=== PATIENT | female | born 1985 ===

== ENCOUNTER 2016-09-22 06:14 | Inpatient (IN) | payer BC ==
[2016-09-22] MEDS ORDERED: Sodium Citrate/Citric Acid* 15 ML UDC ONE (07:37)
[2016-09-22] MEDS ORDERED: Morphine PF AMP (0.5MG/ML)* 5 MG/10 ML AMP ONE (07:41)
[2016-09-22] MEDS ORDERED: ceFOXitin 2 GM IVPREMIX* 2 GM/50 ML BAG IVPB ONE (08:00)
[2016-09-22] MEDS ORDERED: Phenylephrine IV* 40 MCG/ML 10 ML SYRINGE ONE (08:03)
[2016-09-22] MEDS ORDERED: fentaNYL* 50 MCG/ML 2 ML VIAL (100 MCG VIAL) ONE (08:27)
[2016-09-22] MEDS ORDERED: fentaNYL* 50 MCG/ML 2 ML VIAL (100 MCG VIAL) IV PRN (08:33)
[2016-09-22] MEDS ORDERED: DiMENhydriNATE IV* 50 MG/ML VIAL IV PUSH PRN (08:33)
[2016-09-22] MEDS ORDERED: Nalbuphine* 20 MG/ML 1 ML VIAL IV PRN (08:35)
[2016-09-22] MEDS ORDERED: diPHENhydraMINE IV* 50 MG/ML 1 ml VIAL (BENADRYL) IV PRN (08:35)
[2016-09-22] MEDS ORDERED: oxyCODONE/Acetamin 5/325 MG* TAB PO PRN ×3 (08:35→23:58)
[2016-09-22] MEDS ORDERED: Ondansetron INJ* 2 MG/ML VIAL IV PRN (08:35)
[2016-09-22] MEDS ORDERED: Naloxone* 2 MG in NS 0.9% 250 ML* 250 ML IV PRN (08:35)
[2016-09-22] MEDS ORDERED: Naloxone* 0.4 MG/ML 1 ML VIAL IV PRN (08:35)
[2016-09-22] MEDS ORDERED: OXYTOCIN* 10 UNITS/ML 1 ML VIAL ONE (08:41)
[2016-09-22] MEDS ORDERED: Ketorolac INJ* 30 MG/ML 1 ML VIAL ONE (08:41)
[2016-09-22] MEDS ORDERED: Ondansetron INJ* 2 MG/ML VIAL ONE (08:41)
[2016-09-22] MEDS ORDERED: Dibucaine 1% 28.35 GM TUBE PR PRN (09:01)
[2016-09-22] MEDS ORDERED: Acetaminophen TAB* 325 MG PO PRN (09:01)
[2016-09-22] MEDS ORDERED: Glycerin ADULT SUPP PR PRN (09:01)
[2016-09-22] MEDS ORDERED: Witch Hazel PAD* JAR TOPICAL PRN (09:01)
[2016-09-22] MEDS ORDERED: Oxytocin in LR* 20 UNITS/1,000 ML BAG IVPB SCH (10:00)
[2016-09-22] MEDS: Ketorolac INJ* 30 MG/ML 1 ML VIAL IV PRN ×2 (14:33→22:08)
[2016-09-22] MEDS: Docusate CAP* 100 MG PO SCH ×2 (14:36→22:08)
[2016-09-22] MEDS: Simethicone CHEW TAB* 80 MG PO SCH ×2 (14:37→22:08)
--- NOTE | 2016-09-23 04:35 | OP ---
CC: Olaf Shah MD * DATE OF OPERATION: 09/22/16 - ROOM #[id number]-113 DATE OF : 81 SURGEON: Emilia Mi MD. PRINTING GRAY CLOTH TENDER: Olaf Shah MD ANESTHESIOLOGIST: Dr. Ray. ANESTHESIA: Spinal. PRE-OP DIAGNOSES: 1. Desires repeat section, intrauterine at 39-0/7th weeks. 2. Diabetes mellitus. POST-OP DIAGNOSES: 1. Desires repeat section, intrauterine at 39-0/7th weeks, delivered. 2. Diabetes mellitus. OPERATIVE PROCEDURE: Repeat low transverse section and lysis of adhesions. FINDINGS: Revealed a vertex female with Apgars 9 at 1 minute, 9 at 5 minutes, weight 7 pounds 11 ounces. No nuchal cord. No meconium. Uterus with thin lower uterine segment; however, with no window. Normally palpated tubes and ovaries. She had an omental adhesion and an abdominal wall adhesion of the uterus to the abdominal wall on the left upper portion of the uterus. Normally palpated tubes and ovaries. Normal appearing placenta, 3-vessel cord manually extracted intact. COMPLICATIONS: None apparent. DISPOSITION: Stable to recovery room. DESCRIPTION OF PROCEDURE: The patient was placed in dorsal lithotomy position. The abdomen was prepped and draped in a sterile standard fashion. After testing to appropriate level of anesthesia and completing universal protocol, an incision was made two fingerbreadths above the pubic symphysis through prior incision. This was used with the scalpel and this was carried down through to the fascia. The fascia was scored in the midline and extended laterally and superiorly using Merchant scissors. The peritoneum was then entered bluntly. The bladder blade was inserted and lower uterine segment was identified, the uterus and lower uterine segment was tented with Allis and incision was made with scalpel. This was carried down through to the membranes. Clear fluid was noted. The uterine incision was extended laterally and superiorly using bandage scissors. The was delivered vertex PIERCE. No nuchal cord. No meconium noted. Anterior and posterior shoulder delivered. Body was delivered. The cord was then milked and clamped and the was handed off to waiting primary education professor. Appropriate cord blood was obtained. The placenta was then manually extracted. Uterine cavity was explored and noted to be free of any membranes or placental tissue. The uterine incision was reapproximated in two layers, first layer running locked, second layer running imbricated. There was an adhesion noted in the left upper portion of the uterus to the abdominal wall and above that, and superior to that was an omental adhesion to the abdominal wall. These were taken down with Kya x2, transected, then suture ligated using 0 Vicryl in a fashion both on the abdominal wall and the uterus. The omental adhesion was noted to the abdominal wall. Kya was placed across the this adhesion, transected with curved Merchant and then suture ligated using 0 Vicryl x2. Hemostasis was noted on both afferent, efferent ends of these adhesions. Tubes and ovaries were palpated and noted to palpate normally. At that point, the decision was made to close the peritoneum. The peritoneum was clamped with Kya. The peritoneal incision was reapproximated using 3-0 Vicryl in a running fashion. Subfascial area was visualized. Hemostasis was assured with Bovie coagulation and the fascia was then reapproximated using 0 Vicryl x2 in a running fashion. Subcu was lavaged. Hemostasis assured with Bovie coagulation. The skin was then reapproximated using 4-0 Monocryl in a subcuticular fashion. Mastisol and Steri-Strips were applied. All sponge, instruments, and blade counts were correct throughout the case. The patient tolerated the procedure well and went to recovery room in stable condition. [id number] #: [id number] DAMON
[2016-09-23] MEDS: Ketorolac INJ* 30 MG/ML 1 ML VIAL IV PRN (05:50)
[2016-09-23] MEDS: Simethicone CHEW TAB* 80 MG PO SCH ×4 (07:03→20:14)
[2016-09-23 07:42] LABS: Hematocrit 30 % (35-47); Hemoglobin 9.5 g/dl (12.0-16.0); Mean Corpuscular HGB Conc 32 g/dl (31-36); Mean Corpuscular Hemoglobin 24 pg (27-31); Mean Corpuscular Volume 76 fL (80-97); Mean Platelet Volume 10 um3 (7.4-10.4); Red Blood Count 3.95 10^6/ul (4.0-5.4); Red Cell Distribution Width 16 % (10.5-15); White Blood Count 10.9 10^3/ul (3.5-10.8)
[2016-09-23] MEDS ORDERED: Varicella Virus Vaccine Live* 0.5 ML VIAL SUBCUT ONE (09:00)
[2016-09-23] MEDS: Ferrous Gluconate TAB* 324 MG TAB PO SCH ×2 (09:08→20:15)
[2016-09-23] MEDS: Docusate CAP* 100 MG PO SCH ×3 (09:08→20:14)
[2016-09-23] MEDS: Ibuprofen TAB* 600 MG PO PRN (20:14)
[2016-09-24 08:27] VITALS: BP 99/57
[2016-09-24] MEDS: Docusate CAP* 100 MG PO SCH (08:48)
[2016-09-24] MEDS: Ferrous Gluconate TAB* 324 MG TAB PO SCH (08:49)
[2016-09-24] MEDS: Ibuprofen TAB* 600 MG PO PRN (08:49)
[2016-09-24] MEDS: Simethicone CHEW TAB* 80 MG PO SCH ×2 (08:49→11:49)
== END 2016-09-24 14:36 | disposition home or self-care (01) | DRG 540 ==
LOC: MCHOB 06:14
PROVIDERS: ADMIT Obstetrics & Gynecology; ATTEND Obstetrics & Gynecology
PROC: 4A1HX4Z Monitoring of Products of Conception, Cardiac Electrical Activity, External Approach (ICD-10-PCS; 2016-09-22)
PROC: 10D00Z1 Extraction of Products of Conception, Low, Open Approach (ICD-10-PCS; principal; 2016-09-22 07:45)
DX: O24.424 Gestational diabetes mellitus in childbirth, insulin controlled (principal); O90.81 Anemia of the puerperium; O34.211 Maternal care for low transverse scar from previous cesarean delivery; Z3A.39 39 weeks gestation of pregnancy; Z37.0 Single live birth; Z83.3 Family history of diabetes mellitus
CPT/HCPCS: 36415; 85025; A9270-GY; J0694; J1885; J2405; J2590; J3010